=== PATIENT | male | born 1980 | race African-American/Black ===

== ENCOUNTER → 2020-02-22 | Outpatient (CLI) | payer MEDICARE, MEDICAID ==
[~2020-02-22] MED LIST: AMLODIPINE BESY10 MG PO; BENZTROPINE MES1 MG PO; BENZTROPINE MESY2 MG PO; BRACE MC; BUDEPRION SR150 MG PO; CEPHALEXIN 250250 M1 PO; CITRATE OF MAG300 ML PO; CLONAZEPAM 0.50.5 M1 PO; CLONAZEPAM 1 MG1 M1 PO; CLOZAPINE50 MG PO; DANDRUFF 1% SH325 ML TP; DIABETA 5MG TABL5 MG PO; DOK100 MG PO; ESKALITH300 MG PO; GLUCOPHAGE XR500 MG PO; GLUMETZA500 PO; HALDOL5 MG/1 ML PO; HYDROXYZINE PAM50 MG PO; IBUPROFEN 400400 M2 PO; IBUPROFEN 600600 M1 PO; IBUPROFEN 800800 M1 PO; JANUMET PO; JANUMET XR 1001 EACH PO; JANUMET XR 50-1 EAC1; KEFLEX250 M1 PO; KEFLEX500 MG PO; LATUDA120 MG PO; LATUDA80 MG PO; LISINOPRIL-HCT1 EAC2 PO; LISINOPRIL20 MG PO; MIRALAX255 GM PO; OMEPRAZOLE40 MG PO; PANTOPRAZOLE SO40 M1 PO; PEPCID AC20 M1 PO; PREDNISONE 20 M20 MG PO; PRILOSEC40 MG; PRINIVIL10 MG PO; PROPRANOLOL 1010 MG PO; PROPRANOLOL 20M20 M1 PO; REGLAN 10 MG TA10 MG PO; TRAZODONE 100 MG PO; TRAZODONE 150150 M1; VIIBRYD10 MG PO; VIIBRYD40 MG PO; VITAMIN D 5050000 I1; VITAMIN D 5050000 I1 PO; WELLBUTRIN XL300 MG PO; ZESTORETIC 20-1 EAC1 PO; ZOFRAN 4 MG ORAL4 MG PO; ZOFRAN ODT4 MG PO; [UNRECOGNIZED DRUG - REMARK]
[2020-02-22 12:27] LABS: ABSOLUTE BASOPHILS 0.1 thou/uL (0.0-0.2); ABSOLUTE EOSINOPHILS 0.1 thou/uL (0.0-0.7); ABSOLUTE LYMPHOCYTES 1.1 thou/uL (0.8-5.3); ABSOLUTE MONOCYTES 0.5 thou/uL (0.0-1.2); ABSOLUTE NEUTROPHILS 5.7 thou/uL (1.6-8.1); BASOPHILS 0.8 %; EOSINOPHILS 1.9 %; HEMATOCRIT 42.8 % (42.0-52.0); HEMOGLOBIN 14.7 gm/dL (14.0-18.0); LYMPHOCYTES 14.3 %; MCH 30.8 pg (26.0-34.0); MCHC 34.4 g/dL (28.0-37.0); MCV 89.4 fL (80.0-100.0); MONOCYTES 6.5 %; MPV 8.2 fl. (7.2-11.1); NUCLEATED RBCS 0 /100WBC; PLATELET COUNT* 232 thou/uL (150-400); POLYS 76.5 %; RBC 4.78 mil/uL (4.50-6.00); RDW-CV 13.4 % (10.5-14.5); WBC 7.5 thou/uL (4.0-11.0)
== END ==
LOC: M.LAB 11:54
PROVIDERS: Nurse Practitioner Psychiatric/Mental Health
DX: F20.0 Paranoid schizophrenia (principal)

== ENCOUNTER → 2020-12-04 | Outpatient (CLI) | payer MEDICARE, MEDICAID | LOC: M.LAB 12:04 | PROVIDERS: ATTEND Nurse Practitioner Psychiatric/Mental Health | DX: F20.9 Schizophrenia, unspecified (principal) ==

== ENCOUNTER 2021-03-15 14:49 | Emergency (ER) | payer MEDICARE, MEDICAID ==
[~2021-03-15] VITALS: Ht 182.9 cm; Wt 79.4 kg
[2021-03-15] MEDS ORDERED: CLARITIN10 M3 PO (15:13)
[2021-03-15] MEDS ORDERED: METFORMIN HCL500 M3 PO (15:13)
[2021-03-15] MEDS ORDERED: NORVASC10 MG PO (15:13)
[2021-03-15] MEDS ORDERED: GEODON60 MG PO (15:14)
[2021-03-15] MEDS ORDERED: TOPROL XL25 MG PO (15:14)
[2021-03-15 17:21] LABS: URINE BLOOD NEGATIVE (Negative); URINE COLOR YELLOW; URINE GLUCOSE-RANDOM NEGATIVE (Negative); URINE KETONES TRACE (Negative); URINE LEUKOCYTES-REFLEX NEGATIVE (Negative); URINE NITRITE-REFLEX NEGATIVE (Negative); URINE PROTEIN 1+ (Negative); URINE SPECIFIC GRAVITY >= 1.030 (1.005-1.030); URINE UROBILINOGEN 0.2 E.U./dl (0.2-1.0)
[2021-03-15 17:22] LABS: ICTOTEST (BILI CONFIRMATORY) Negative (Negative); URINE BILIRUBIN 1+ (Negative); URINE CLARITY HAZY
[2021-03-15 18:46] LABS: ABSOLUTE BASOPHILS 0.1 thou/uL (0.0-0.2); ABSOLUTE LYMPHOCYTES 1.5 thou/uL (0.8-5.3); ABSOLUTE MONOCYTES 0.5 thou/uL (0.0-1.2); ABSOLUTE NEUTROPHILS 5.8 thou/uL (1.6-8.1); BASOPHILS 0.9 %; EOSINOPHILS 0.3 %; HEMATOCRIT 45.2 % (42.0-52.0); HEMOGLOBIN 15.2 gm/dL (14.0-18.0); LYMPHOCYTES 18.6 %; MCH 30.3 pg (26.0-34.0); MCHC 33.5 g/dL (28.0-37.0); MCV 90.5 fL (80.0-100.0); MONOCYTES 6.4 %; MPV 7.3 fl. (7.2-11.1); NUCLEATED RBCS 0 /100WBC; PLATELET COUNT* 283 thou/uL (150-400); POLYS 73.8 %; RBC 4.99 mil/uL (4.50-6.00); WBC 7.8 thou/uL (4.0-11.0)
[2021-03-15 18:51] LABS: CALCIUM 9.3 mg/dL (8.5-10.1); CREATININE 1.3 mg/dL (0.6-1.3); POTASSIUM 4.1 mmol/L (3.5-5.1)
[2021-03-15 18:55] LABS: TOTAL BILIRUBIN 0.1 mg/dL (<0.1-1.0); TOTAL PROTEIN 7.4 g/dL (6.4-8.2)
[2021-03-15] MEDS ORDERED: CARAFATE1 GM PO (18:58)
[2021-03-15] MEDS ORDERED: PHENERGAN 25 MG25 M1 PO (18:58)
[2021-03-15 19:34] VITALS: BP 137/93
--- NOTE | 2021-03-16 12:30 | EKG ---
[place] [address] ELECTROCARDIOGRAM REPORT Name: ARELI GARCIA Room: [facility]#: [id number] Admission: 03/15/21 Attend Phys: Discharge: 03/15/21 Date of : 78 Date of Service: 03/15/21 1906 Report #: [id number] THIS REPORT FOR: //name// [facility] ED Test Date: 2021-03-15 Test Time: 19:06:46 Pat Name: ARELI GARCIA Department: Room: Gender: Brand Strategy Manager: [place] : 1980 Requested By: Otis Slade Order Number: [id number] Faisal MD: Ovi Mcgovern Measurements Intervals Raymond Rate: 71 P: 12 [place]: 62 QRS: 19 QRSD: 110 T: 32 QT: 441 QTc: 480 Interpretive Statements Sinus rhythm Minor interventricular conduction delay Nonspecific ST-T abnormalities Borderline prolonged QT interval No previous ECG available for comparison Electronically Signed On 03-16-2021 12:29:52 CDT by Ovi Mcgovern [email or web address] <ELECTRONICALLY SIGNED> By: Ovi Mcgovern MD, [facility] 03/16/21 1229 05 05 Ovi Mcgovern MD, FAC /EPI
== END 2021-03-15 19:36 | disposition home or self-care (01) ==
LOC: M.ERS 14:49
PROVIDERS: Emergency Medicine Emergency Medical Services
DX: R11.2 Nausea with vomiting, unspecified (principal); R10.13 Epigastric pain; I10 Essential (primary) hypertension